=== PATIENT | female | born 1935 | race Caucasian/White ===

== ENCOUNTER 2016-10-08 16:06 | Inpatient (IN) | payer MEDICARE, MEDICAID ==
[~2016-10-08] VITALS: Ht 162.6 cm; Wt 95.3 kg
[2016-10-08 16:00] VITALS: BP 140/73
[~2016-10-08 16:06] MED LIST: ASPI1CPM PO; CLON0.1T PO; EZET1TAB7 PO; LORA0.5T PO; METF500T4 PO; VALS1TAB4 PO
[2016-10-08 16:20] VITALS: BP 140/73
--- NOTE | 2016-10-08 16:20 | NUR ---
MS RN NOTES PATIENT DIRECT ADMIT FROM DR. HASSAN'S OFFICE. DX HTN OOC. AAO X 4 , BARBADIAN SPEAKING, ON RA, NAD, NO SOB, RESPIRATION UNLABORED. NO COMPLAIN OF PAIN. FOR MIDLINE INSERTION. CARDIAC DIET. AMBULATORY. NO SKIN ISSUES. FALL PRECAUTION. UNIT ORIENTATION DONE AND USE OF CALL LIGHT. WILL CONT TO MONITOR.
[2016-10-08] MEDS ORDERED: IV NS 0.9% 1,000 ML BAG IV PRN (16:30)
[2016-10-08] MEDS ORDERED: ASPI1CPM PO (16:32)
[2016-10-08] MEDS ORDERED: ESCI10TA PO (16:32)
[2016-10-08] MEDS ORDERED: ACET-868 PO (16:32)
[2016-10-08] MEDS ORDERED: METF500T4 PO (16:32)
[2016-10-08] MEDS ORDERED: HYDR-548 PO (16:32)
[2016-10-08] MEDS ORDERED: PANT40TA2 PO (16:32)
[2016-10-08] MEDS ORDERED: LORA1TAB82 PO (16:32)
[2016-10-08] MEDS ORDERED: VALS160T2 PO (16:32)
[2016-10-08 17:09] LABS: BASOPHILS % (AUTO) 0.4 % (0.0-2.0); EOSINOPHILS # (AUTO) 0.1 /CMM (0.0-0.7); EOSINOPHILS % (AUTO) 2.3 % (0.0-6.0); HEMATOCRIT 32 % (33-45); HEMOGLOBIN 10.6 g/dL (11.5-14.8); LYMPHOCYTES # (AUTO) 1.3 /CMM (0.8-4.8); LYMPHOCYTES % (AUTO) 29.7 % (20.0-44.0); MEAN CORPUSCULAR HEMOGLOBIN 25 PG (26.0-33.0); MEAN CORPUSCULAR HGB CONC 33 g/dl (31.0-36.0); MEAN CORPUSCULAR VOLUME 77 fL (82-100); MONOCYTES # (AUTO) 0.3 /CMM (0.1-1.30); MONOCYTES % (AUTO) 6.5 % (2.0-12.0); NEUTROPHILS # (AUTO) 2.6 /CMM (1.8-8.9); NEUTROPHILS % (AUTO) 61.1 % (43.0-81.0); PLATELET COUNT (AUTO) 204 /CMM (150-450); RDW COEFFICIENT OF VARIATION 16.8 (11.5-15.0); RED BLOOD CELL COUNT(AUTO) 4.19 MIL/uL (4.0-5.2); WHITE BLOOD COUNT (AUTO) 4.3 K/uL (4.3-11.0)
[2016-10-08] MEDS ORDERED: ONDANSETRON HCL/PF 4 MG/2 ML VIAL IV PRN (17:30)
[2016-10-08] MEDS ORDERED: LORAZEPAM 1 MG TABLET PO PRN (17:30)
[2016-10-08] MEDS ORDERED: DEXTROSE 50%-WATER 50 ML DISP.SYRIN IV PRN (17:30)
[2016-10-08] MEDS ORDERED: HYDROCODONE/APAP 10/325MG 1 EA TABLET PO PRN (17:30)
[2016-10-08 17:32] LABS: TROPONIN I < 0.017 ng/mL (0.00-0.056)
[2016-10-08] MEDS: BLOOD SUGAR DIAGNOSTIC 1 EACH STRIP IN SCH ×2 (17:35→21:04)
[2016-10-08 17:37] LABS: ALANINE AMINOTRANSFERASE 32 U/L (12-78); ALKALINE PHOSPHATASE 57 U/L (46-116); ASPARTATE AMINOTRANSFERASE 24 U/L (15-37); B-TYPE NATRIURETIC PEPTIDE 386 PG/ML (0-125); BILIRUBIN,TOTAL 0.3 mg/dL (0.2-1.0); CALCIUM, SERUM 8.8 mg/dL (8.5-10.1); CARBON DIOXIDE 29 mmol/L (21-32); CHLORIDE 102 mmol/L (98-107); GLUCOSE 131 mg/dL (74-106); POTASSIUM 4.5 mmol/L (3.5-5.1); SODIUM SERUM 139 mmol/L (136-145); THYROID STIMULATING HORMONE 2.201 uIU/mL (0.358-3.74); TOTAL PROTEIN, SERUM 7.5 g/dL (6.4-8.2); UREA NITROGEN, BLOOD 15 mg/dL (7-18)
--- NOTE | 2016-10-08 17:48 | NUR ---
MS RN NOTES ACCUCHECK DONE , BS 136 MG/DL. REFUSE INSULIN FOR NOW. NOT HAVE EATEN ANYTHING.
[2016-10-08 18:00] VITALS: BP 140/73
--- NOTE | 2016-10-08 19:30 | NUR ---
MS RN NOTE RECEIVED PATIENT AWAKE ALERT AND ORIENTED IN BED. DENIES ANY PAIN OR DISCOMFORT AT THIS TIME. NO RESPIRATORY DISTRESS OR SOB NOTED. MIDLINE TO FERMIN INTACT. WILL ADMINISTER FLUIDS ORDERED. BED LOCKED AND IN LOWEST POSITION. SIDE RAILS UP, CALL LIGHT WITHIN REACH. WILL CONTINUE TO MONITOR.
--- NOTE | 2016-10-08 19:32 | NUR ---
MS RN NOTES ALL NEEDS MET. RESTING COMFORTABLY. ONGOING MIDLINE INSERTION. FOR MRSA SURVEILLANCE COLLECTION. ENDORSED TO NEXT SHIFT FOR SWEETIE.
[2016-10-08 20:00] VITALS: BP 147/58
[2016-10-08] MEDS ORDERED: IV SET PRIMARY PUMP SET 1 EA INFUS.SET MC ONE (20:59)
[2016-10-08] MEDS: VALSARTAN 80 MG TABLET PO SCH (21:03)
[2016-10-08] MEDS: IV NS 0.9% 1,000 ML IV PRN (21:04)
[2016-10-08 22:00] VITALS: BP 147/58
[2016-10-08 22:00] LABS: APPEARANCE,URINE CLEAR (CLEAR); BILIRUBIN,URINE NEGATIVE (NEGATIVE); BLOOD, URINE NEGATIVE Ery/uL (NEGATIVE); COLOR,URINE YELLOW (YELLOW); KETONES,URINE NEGATIVE (NEGATIVE); LEUKOCYTE ESTERASE ,URINE TRACE (NEGATIVE); NITRITE, URINE NEGATIVE (NEGATIVE); PH,URINE 6.5 (5.0-8.0); PROTEIN,URINE NEGATIVE (NEGATIVE); UGLUCOSE NEGATIVE (NEGATIVE); UROBILINOGEN,URINE 0.2 EU/dL (0.2)
[2016-10-08 22:13] LABS: RBC,URINE NONE SEEN /HPF (0-2); WBC,URINE 0-2 /HPF (0-3)
[2016-10-08 22:14] LABS: BACTERIA,URINE None seen /HPF (None Seen); SQUAMOUS EPITHELIAL CELL,UR Rare /HPF (None Seen)
[2016-10-08] MEDS: CLONIDINE HCL 0.1 MG TABLET PO PRN (23:20)
--- NOTE | 2016-10-09 01:00 | NUR ---
MS RN NOTE PER SON'S REQUEST BLOOD PRESSURE WAS TAKEN. BP IS 158/89 AT THIS TIME. PATIENT COMFORTABLE.
--- NOTE | 2016-10-09 07:25 | NUR ---
RN MS NOTES PATIENT IN BED, ALERT AND ORIENTED, NO DISTRESS NOTED, DENIES PAIN AT THIS TIME, NEEDS ATTENDED, CALL LIGHT WITHIN REACH, SAFETY MEASURES IN PLACED, WILL CONTINUE TO MONITOR.
[2016-10-09] MEDS: BLOOD SUGAR DIAGNOSTIC 1 EACH STRIP IN SCH ×4 (07:33→21:14)
[2016-10-09 07:50] LABS: BASOPHILS % (AUTO) 0.4 % (0.0-2.0); EOSINOPHILS # (AUTO) 0.1 /CMM (0.0-0.7); EOSINOPHILS % (AUTO) 2.4 % (0.0-6.0); HEMATOCRIT 32 % (33-45); HEMOGLOBIN 10.7 g/dL (11.5-14.8); LYMPHOCYTES # (AUTO) 1.2 /CMM (0.8-4.8); LYMPHOCYTES % (AUTO) 32.5 % (20.0-44.0); MEAN CORPUSCULAR HEMOGLOBIN 26 PG (26.0-33.0); MEAN CORPUSCULAR HGB CONC 33 g/dl (31.0-36.0); MEAN CORPUSCULAR VOLUME 77 fL (82-100); MONOCYTES # (AUTO) 0.3 /CMM (0.1-1.30); MONOCYTES % (AUTO) 7.1 % (2.0-12.0); NEUTROPHILS # (AUTO) 2.1 /CMM (1.8-8.9); NEUTROPHILS % (AUTO) 57.6 % (43.0-81.0); PLATELET COUNT (AUTO) 173 /CMM (150-450); RDW COEFFICIENT OF VARIATION 16.5 (11.5-15.0); RED BLOOD CELL COUNT(AUTO) 4.18 MIL/uL (4.0-5.2); WHITE BLOOD COUNT (AUTO) 3.7 K/uL (4.3-11.0)
[2016-10-09 08:00] VITALS: BP 160/73
[2016-10-09 08:25] LABS: CALCIUM, SERUM 8.9 mg/dL (8.5-10.1); CARBON DIOXIDE 29 mmol/L (21-32); CHLORIDE 104 mmol/L (98-107); CREATININE 0.9 mg/dL (0.6-1.3); GLUCOSE 166 mg/dL (74-106); POTASSIUM 4.2 mmol/L (3.5-5.1); SODIUM SERUM 143 mmol/L (136-145); UREA NITROGEN, BLOOD 14 mg/dL (7-18)
[2016-10-09 08:29] LABS: CHOLESTEROL 222 mg/dL (<200); HDL CHOLESTEROL 22 mg/dL (40-60); LDL 135 mg/dL (0-99); TRIGLYCERIDES 327 mg/dL (30-150)
[2016-10-09] MEDS: PANTOPRAZOLE 40 MG TABLET.DR PO SCH (09:02)
[2016-10-09] MEDS: METFORMIN 500 MG TABLET PO SCH ×2 (09:03→17:00)
[2016-10-09] MEDS: AGGRENOX(ASA/DIPYRIDAMOLE) 1 CAP CPMP.12HR PO SCH ×2 (09:03→18:42)
[2016-10-09] MEDS: VALSARTAN 80 MG TABLET PO SCH ×2 (09:03→21:09)
[2016-10-09] MEDS: ESCITALOPRAM OXALATE (10 MG) 10 MG TABLET PO SCH ×2 (09:03→17:24)
[2016-10-09] MEDS: IV NS 0.9% 1,000 ML IV PRN (09:12)
[2016-10-09 10:21] LABS: CANCER AG, 125 7.3 U/mL (0.0-38.1); CARCINOEMBRYONIC AG (CEA) 1.6 ng/mL (0.0-4.7)
[2016-10-09 10:50] LABS: IRON, SERUM 52 ug/dl (50-175); TOTAL IRON BINDING CAPACITY 405 ug/dl (250-450)
--- NOTE | 2016-10-09 11:09 | NUR ---
SPOKE WITH RN. PATIENT ATE AT 0800. AWAITING CONSENT FOR COMPUTED TOMOGRAPHY ABDOMEN PELVIS WITH CONTRAST. RN WILL CALL BACK TO CONFIRM CONSENT.
[2016-10-09] MEDS ORDERED: CT SWABBABLE VALVE TRANS SET 1 EA INFUS.SET MC ONE (11:55)
[2016-10-09] MEDS ORDERED: IV NS 0.9% 250 ML IV ONE (11:55)
[2016-10-09] MEDS ORDERED: IOHEXOL-300 100 ML VIAL IV ONE (11:55)
[2016-10-09] MEDS: INSULIN REGULAR, HUMAN 100 UNIT/ML 3 ML VIAL SQ PRN ×2 (12:39→17:28)
[2016-10-09] MEDS: CYANOCOBALAMIN 1,000 MCG/ML VIAL IM SCH (12:39)
[2016-10-09] MEDS: AMLODIPINE BESYLATE 5 MG TABLET PO SCH (12:40)
[2016-10-09] MEDS: CLONIDINE HCL 0.1 MG TABLET PO PRN ×2 (12:41→23:28)
[2016-10-09] MEDS: hydrALAZINE HCL 50 MG TABLET PO SCH ×2 (14:50→17:25)
[2016-10-09 16:00] VITALS: BP 125/62
[2016-10-09] MEDS ORDERED: SECONDARY IV SET 1 EA INFUS.SET MC ONE (17:30)
[2016-10-09] MEDS: SOD FERRIC GLUC 125 MG in IV NS 0.9% 100 ML IV SCH (17:34)
--- NOTE | 2016-10-09 19:30 | NUR ---
RN NOTES RECEIVED PATIENT IN BED AWAKE, AO X 3, ABLE TO MAKE NEEDS KNOWN. NO ACUTE DISTRESS NOTED. DENIES ANY PAIN AT THIS TIME. IV SITE PATENT, INTACT; FLUSHED. NO SYMPTOMS OF HYPER/HYPOGLYCEMIA. ON LOW BED WITH BILATERAL UPPER SIDE RAILS UP. CALL LIGHT WITHIN EASY REACH. WILL CONTINUE TO MONITOR.
--- NOTE | 2016-10-09 19:47 | NUR ---
RN MS NOTES PATIENT NON-COMPLIANT, REFUSED SOME MEDS AND INSULIN, DR. HASSAN AWARE, PER SON, WHEN PATIENT TAKES NORVASC HER FEET SWELLS, NO EDEMA NOTED AT THIS TIME, WILL INFORM DR. JIN IN AM, ENDORSED TO ZINC MINER BLASTING FOR SWEETIE.
[2016-10-09 20:00] VITALS: BP 151/67
[2016-10-09] MEDS: ACETAMINOPHEN 325 MG TABLET PO PRN (23:30)
[2016-10-10] VITALS (10 sets, daily range): BP systolic 88–162; BP diastolic 37–71
--- NOTE | 2016-10-10 03:30 | NUR ---
ms rn notes: received patient from RN, SEVEN. no signs or symptoms of distress noted at this time. pt is sleeping at this time. call light within pt's reach. bed kept in locked, lowest position, and side rails x 2 up. will continue to monitor pt.
--- NOTE | 2016-10-10 03:30 | NUR ---
RN NOTES REPORT GIVEN TO LIBBY LOPEZ FOR CONTINUITY OF CARE. PATIENT ASLEEP, EASILY AROUSABLE. RESPIRATIONS EVEN.
[2016-10-10] MEDS: BLOOD SUGAR DIAGNOSTIC 1 EACH STRIP IN SCH ×4 (06:26→21:45)
--- NOTE | 2016-10-10 07:30 | NUR ---
MS RN CLOSING NOTES: PT'S BLOOD SUGAR WAS CHECKED EARLIER AND WAS 208MG/DL. TOLD PATIENT THAT SHE IS TO RECEIVE INSULIN BUT SHE REFUSED TO HAVE INSULIN. NO SIGNS OR SYMPTOMS OF DISTRESS NOTED AT THIS TIME. CALL LIGHT WITHIN PT'S REACH. BED KEPT IN LOCKED, LOWEST POSITION, AND SIDE RAILS X 2 UP. ENDORSED TO AM NURSE FOR SWEETIE.
--- NOTE | 2016-10-10 07:41 | NUR ---
MS RN OPENING NOTE PATIENT IS ALERT AND ORIENTED x3. NO PAIN AT THIS TIME. NO SOB OR DISTRESS NOTED. CALL LIGHT WITHIN REACH. SAFETY MEASURES IMPLEMENTED. IV INTACT AND PATENT NO REDNESS OR SWELLING NOTED. ABLE TO COMMUNICATE NEEDS. WILL CONTINUE TO MONITOR
[2016-10-10] MEDS: METFORMIN 500 MG TABLET PO SCH ×2 (09:00→17:00)
[2016-10-10] MEDS: CYANOCOBALAMIN 1,000 MCG/ML VIAL IM SCH (09:00)
[2016-10-10] MEDS: PANTOPRAZOLE 40 MG TABLET.DR PO SCH (09:18)
[2016-10-10] MEDS: ESCITALOPRAM OXALATE (10 MG) 10 MG TABLET PO SCH ×2 (09:18→17:13)
[2016-10-10] MEDS: AMLODIPINE BESYLATE 5 MG TABLET PO SCH (09:19)
[2016-10-10] MEDS: VALSARTAN 80 MG TABLET PO SCH ×2 (09:20→21:00)
[2016-10-10] MEDS: AGGRENOX(ASA/DIPYRIDAMOLE) 1 CAP CPMP.12HR PO SCH ×2 (09:21→17:13)
[2016-10-10] MEDS: ISOSORBIDE DINITRATE (20MG) 20 MG TABLET PO SCH ×2 (09:30→17:13)
[2016-10-10] MEDS: hydrALAZINE HCL 50 MG TABLET PO SCH ×2 (13:27→17:00)
[2016-10-10] MEDS ORDERED: PEG 3350/NA SULF,BICARB,CL/KCL 4,000 ML BOTTLE PO ONE (14:00)
[2016-10-10] MEDS: SOD FERRIC GLUC 125 MG in IV NS 0.9% 100 ML IV SCH (14:00)
[2016-10-10] MEDS: ACETAMINOPHEN 325 MG TABLET PO PRN (18:05)
--- NOTE | 2016-10-10 18:32 | NUR ---
MS RN CLOSING NOTE PATIENT IS ALERT AND ORIENTED x4. NO PAIN AT THIS TIME. NO SOB OR DISTRESS NOTED. IV INTACT AND PATENT NO REDNESS OR SWELLING NOTED. CLEAR LIQUID DIET NPO AT MIDNIGHT FOR COLONOSCOPY/EGD PROCEDURE WITH DR. BILLINGSLEY IN THE MORNING. PATIENT REFUSED INSULIN, BLOOD SUAGR 197. CALL LIGHT WITHIN REACH AT ALL TIMES. SAFETY MEASURES IMPLEMENTED. WILL ENDORSE TO PUMP HOUSE ENGINEER
--- NOTE | 2016-10-10 19:30 | NUR ---
MS/RN INITIAL NOTE PATIENT IS ALERT AND ORIENTED x3. NO PAIN AT THIS TIME. NO SOB, COMPLAINTS OF DIZZINESS UPON STANDING, OBTAINED BP 3 TIMES TO EVALUATE FOR ORTHOSTATIC HYPERTENSION. EDUCATION WAS GIVEN TO PT AND SON/FAMILY. CALL LIGHT WITHIN REACH. SAFETY MEASURES IMPLEMENTED. IV INTACT AND PATENT NO REDNESS OR SWELLING NOTED. ABLE TO COMMUNICATE NEEDS. WILL CONTINUE TO MONITOR
--- NOTE | 2016-10-10 20:00 | NUR ---
MS/RN BP NOTES EDUCATED PT AND FAMILY ABOUT THE NEED TO CHANGE POSITIONS SLOWLY TO PREVENT DIZZINESS WITH ORTHOSTATIC HYPERTENSION. PT AND FAMILY VERBALIZE UNDERSTANDING. WILL CONTINUE TO MONITOR BP AND ENFORCE FALL PREVENTION STRATEGIES.
--- NOTE | 2016-10-10 20:35 | NUR ---
MS/RN BP NOTES DESPITE TEACHING AND VERBALIZTION OF UNDERSTAND THE IMPORTANCE OF CHANGING POSITIONS LOWLY, PT IS NONCOMPLIANT, MOVES AROUND FREELY AND COMPLAINTS OF DIZZINESS WITH NAUSEA. WILL CONTINUE TO MONITOR PT. CALL LIGHT WITHIN REACH
--- NOTE | 2016-10-10 21:00 | NUR ---
DIOVAN REFUSED: PT REFUSED DIOVAN 160 MG SCHEDULE FOR 2100, PT SON AT BED SIDE, PT HD EPISODE OF ORTHOSTATIC HYPOTENSION, AND IS REFUSING MEDICATION FOR BP, WILL CONTINUE TO MONITOR BP, EDUCATION PROVIDED TO PT ND FAMILY
--- NOTE | 2016-10-10 21:00 | NUR ---
MS JOHN BHANDARI REENFORCED THE NEED TO FINISH THE GOLYTELY IN ORDER TO BE PREPPED FOR PROCEDURE TOMORROW AM. POURED GOLYTELY INTO DRINKING CONTAINER AND CUP FOR PT TO ENCOURAGED INTAKE. WILL CONTINUE TO MONITOR
--- NOTE | 2016-10-10 21:24 | NUR ---
PROCEDURE CONSENT: RECEIVED CALL FROM DR JIN, INFORMED MD THAT PATIENT IS AGREEING TO THE [place] STRESS TEST, HOWEVER THE PT SON VIJAY SAID HE'S OKAY WITH THE TEST BUT ONLY RUN AND NOT WITH MEDICATION, ALSO EXTERNAL GRINDER TENDER MADE AWARE THAT PATIENT'S SON WOULD LIKE TO TALK TO HIM IN AM, PER "MAKE SURE TO GET THE FINAL DECISION TO WHETHER THE PT WILL GO FOR STRESS TEST OR NOT, HE ALSO MENTIONED THAT IF THE FAMILY DO NOT WANT THE PROCEDURE INFORMED FELICIA FROM NUCLEAR MEDICINE SO HE CAN CANCEL IT. PER THAT HE WILL TALK TO THE FAMILY TOMORROW AM AT 0700AM." RELAYED TO PT'S SON VIJAY, HE STATED HE WILL GIVE CONSENT FOR THE STRESS TEST BUT STATED ONLY FOR RUN AND NOT MEDICATION. ALSO INFORMED THAT EXTERNAL GRINDER TENDER WILL TALK TO HIM IN AM. VIJAY, PT'S SON SIGNED THE CONSENT FOR STRESS TEST/LEXISCAN TEST.
--- NOTE | 2016-10-10 21:30 | NUR ---
orthostatic bp: orthostatic bp taken, please see vital short form for all the result.
[2016-10-10] MEDS: INSULIN REGULAR, HUMAN 100 UNIT/ML 3 ML VIAL SQ PRN (21:45)
--- NOTE | 2016-10-10 22:00 | NUR ---
MS/RN ELISABET NOTES AGAIN, REENFORCED THE NEED TO FINISH THE GOLYTELY IN ORDER TO BE PREPPED FOR PROCEDURE TOMORROW AM. POURED GOLYTELY INTO DRINKING CONTAINER AND CUP FOR PT TO ENCOURAGED INTAKE. PT HAS BEEN NONCOMPLIANT WITH TAKING GOLYTELY. WILL CONTINUE TO MONITOR BM'S
--- NOTE | 2016-10-10 22:17 | NUR ---
MS RN PRN NOTES COMPLAINT OF NAUSEA, ZOFRAN ADMINISTERED
--- NOTE | 2016-10-10 23:59 | NUR ---
MS/RN MD FOLLOW-UP CONTACTED DR. WARD, MADE AWARE THAT BM STILL NOT CLEAR DESPITE TAKING GOLYTELY. PER MD, KEEPING PUSHING GOLYTELY, GIVE 1 TIME DULCOLAX SUPP IN AM AND TAP WATER ENEMA UNTIL CLEAR.
[2016-10-11] VITALS (7 sets, daily range): BP systolic 110–161; BP diastolic 53–70
[2016-10-11] MEDS ORDERED: BISACODYL SUPP (10 MG) 10 MG/SUPP.RECT SUPP.RECT RC ONE ×2 (05:10→05:30)
--- NOTE | 2016-10-11 05:26 | NUR ---
MS/RN PER MD ORDER DULCOLAX WAS ADMINISTERED TO PT PER DR BILLINGSLEY ORDERS FOR COLONOSCOPY PREP. BM STILL NOT CLEAR. WILL CONTINUE TO MONITOR BM
[2016-10-11] MEDS: BLOOD SUGAR DIAGNOSTIC 1 EACH STRIP IN SCH ×4 (06:35→22:15)
--- NOTE | 2016-10-11 06:53 | NUR ---
MS/RN CLOSING NOTES PATIENT IS LAYING DOWN IN BED. GOLYTELY WAS COMPLETED AND PT WAS NPO STARTING MIDNIGHT. PER MD ORDER DOLCOLAX AND ENEMA WERE GIVEN. CONSENT AND PREOP CHECKLIST HAVE BEEN SIGNED, COMPLETED AND PUT IN THE CHART.IV ACCESS IS PATENT AND INTACT. WILL ENDORSE CARE TO AM SHIFT
--- NOTE | 2016-10-11 07:05 | NUR ---
ENEMA: ENEMA WAS PERFORMED PER DR ANALILIA PULIDO
--- NOTE | 2016-10-11 07:10 | NUR ---
MS RN NOTE: RECEIVED PATIENT WHILE RESTING IN BED, A/OX 4. PATIENT BREATHING EVEN AND UNLABORED ON 2L O2 VIA NC. NO SOB, NO DISTRESS/DISCOMFORT. PATIENT REMAINS NPO, ALL NEEDS ATTENDED TO. SAFETY MEASURES IN PLACE, WILL CONTINUE TO MONITOR.
[2016-10-11] MEDS: PANTOPRAZOLE 40 MG TABLET.DR PO SCH (07:30)
[2016-10-11 07:32] LABS: BASOPHILS % (AUTO) 0.4 % (0.0-2.0); EOSINOPHILS # (AUTO) 0.1 /CMM (0.0-0.7); EOSINOPHILS % (AUTO) 2.8 % (0.0-6.0); HEMATOCRIT 29 % (33-45); HEMOGLOBIN 9.7 g/dL (11.5-14.8); LYMPHOCYTES # (AUTO) 1.1 /CMM (0.8-4.8); LYMPHOCYTES % (AUTO) 28.8 % (20.0-44.0); MEAN CORPUSCULAR HEMOGLOBIN 26 PG (26.0-33.0); MEAN CORPUSCULAR HGB CONC 34 g/dl (31.0-36.0); MEAN CORPUSCULAR VOLUME 77 fL (82-100); MONOCYTES # (AUTO) 0.3 /CMM (0.1-1.30); MONOCYTES % (AUTO) 7.8 % (2.0-12.0); NEUTROPHILS # (AUTO) 2.4 /CMM (1.8-8.9); NEUTROPHILS % (AUTO) 60.2 % (43.0-81.0); PLATELET COUNT (AUTO) 149 /CMM (150-450); RDW COEFFICIENT OF VARIATION 16.9 (11.5-15.0); RED BLOOD CELL COUNT(AUTO) 3.78 MIL/uL (4.0-5.2); WHITE BLOOD COUNT (AUTO) 3.9 K/uL (4.3-11.0)
[2016-10-11 07:57] LABS: CALCIUM, SERUM 8.5 mg/dL (8.5-10.1); CARBON DIOXIDE 28 mmol/L (21-32); CHLORIDE 108 mmol/L (98-107); CREATININE 1.1 mg/dL (0.6-1.3); GLUCOSE 147 mg/dL (74-106); MAGNESIUM 1.8 mg/dL (1.8-2.4); POTASSIUM 4.3 mmol/L (3.5-5.1); SODIUM SERUM 143 mmol/L (136-145); UREA NITROGEN, BLOOD 17 mg/dL (7-18)
--- NOTE | 2016-10-11 07:57 | NUR ---
MS RN NOTE: DR. BILLINGSLEY NOTIFIED THAT PATIENT IS STATING HER BOWELS ARE LIQUID, BUT SLIGHTLY YELLOW AND SMALL PARTICLES. MD STATED TO ADMINISTER TAP WATER ENEMA'S UNTIL CLEAR. ORDER PLACED, WILL IMPLEMENT.
[2016-10-11 08:17] LABS: INR 0.98 (0.87-1.13); PROTHROMBIN TIME 10.5 SECS (9.5-12.7)
--- NOTE | 2016-10-11 08:24 | NUR ---
MS RN NOTE: PATIENT/SON AGREED TO STRESS TEST WITH TREADMILL. PATIENT IN STABLE CONDITION, TAKEN DOWN FOR STRESS TEST VIA WHEELCHAIR.
[2016-10-11] MEDS: VALSARTAN 80 MG TABLET PO SCH ×2 (09:00→20:20)
[2016-10-11] MEDS: ISOSORBIDE DINITRATE (20MG) 20 MG TABLET PO SCH ×2 (09:00→16:25)
[2016-10-11] MEDS: hydrALAZINE HCL 50 MG TABLET PO SCH ×3 (09:00→16:24)
[2016-10-11] MEDS: METFORMIN 500 MG TABLET PO SCH ×2 (09:00→16:28)
[2016-10-11] MEDS: AMLODIPINE BESYLATE 5 MG TABLET PO SCH (09:00)
[2016-10-11] MEDS: AGGRENOX(ASA/DIPYRIDAMOLE) 1 CAP CPMP.12HR PO SCH ×2 (09:00→16:28)
[2016-10-11] MEDS: ESCITALOPRAM OXALATE (10 MG) 10 MG TABLET PO SCH ×2 (09:00→16:28)
--- NOTE | 2016-10-11 09:25 | NUR ---
MS RN NOTE: PATIENT RETURNED FROM STRESS TEST, ABLE TO COMPLETE TREADMILL PORTION. PATIENT REMAINS STABLE. WILL CONTINUE TO MONITOR.
--- NOTE | 2016-10-11 10:15 | NUR ---
MS RN NOTE: TAP WATER ENEMA ADMINISTERED X 2. PATIENT'S BOWELS ARE NOW CLEAR. PATIENT REMAINS STABLE. WILL CONTINUE TO MONITOR.
--- NOTE | 2016-10-11 10:30 | NUR ---
MS RN NOTE: PATIENT TAKEN DOWNSTAIRS VIA WHEELCHAIR FOR SECOND PART OF STRESS TEST. PATIENT REMAINS STABLE, WILL CONTINUE TO MONITOR UPON RETURN.
--- NOTE | 2016-10-11 11:30 | NUR ---
MS RN NOTE: PATIENT RETURNED BACK TO FLOOR. REMAINS STABLE, A/OX 4. BREATHING EVEN AND UNLABORED. WILL CONTINUE TO MONITOR.
[2016-10-11] MEDS: CYANOCOBALAMIN 1,000 MCG/ML VIAL IM SCH (11:42)
--- NOTE | 2016-10-11 12:05 | NUR ---
MS RN NOTE: PATIENT TRANSPORTED TO OR FOR COLONOSCOPY/EGD VIA BED. PATIENT REMAINS STABLE, WILL CONTINUE TO MONITOR PATIENT UPON RETURN.
[2016-10-11] MEDS ORDERED: ANESTHESIA TRAY IN PYXIS 1 EA TRAY MC ONE (13:30)
--- NOTE | 2016-10-11 14:00 | NUR ---
MS RN NOTE: PATIENT RETURNED FROM EGD/COLONOSCOPY. REMAINS IN STABLE CONDITION. NO COMPLICATIONS NOTED, VITALS WNL, WILL CONTINUE TO MONITOR.
[2016-10-11] MEDS ORDERED: IV SET PRIMARY PUMP SET 1 EA INFUS.SET MC ONE (14:40)
[2016-10-11] MEDS: SOD FERRIC GLUC 125 MG in IV NS 0.9% 100 ML IV SCH (14:49)
--- NOTE | 2016-10-11 16:45 | NUR ---
MS RN NOTE: BLOOD SUGAR CHECKED, READING 159. PATIENT REFUSED INSULIN, STATES ONLY TAKES METFORMIN. PATIENT STABLE, WILL CONTINUE TO MONITOR.
--- NOTE | 2016-10-11 18:09 | NUR ---
MS RN NOTE: PATIENT REQUESTING FOR SOLID FOODS. STATING THEY REFUSE ANY FURTHER TESTING. DR. BILLINGSLEY NOTIFIED AND HAS ORDERED A DIABETIC DIET. ORDER PLACED, WILL PROVIDE NEW TRAY.
--- NOTE | 2016-10-11 18:32 | NUR ---
MS RN NOTE: PATIENT RESTING IN BED, A/OX 4. BREATHING EVEN AND UNLABORED ON ROOM AIR. NO SOB, NO DISTRESS AT THIS TIME. PATIENTS NEEDS ATTENDED TO, SAFETY MEASURES IN PLACE, WILL ENDORSE TO HUNTER GUIDE FOR SWEETIE.
--- NOTE | 2016-10-11 19:45 | NUR ---
MS/RN INITIAL NOTE PT IS POST EGD AND NM STRESS TEST PER DR JIN. PATIENT IS ALERT AND ORIENTED x3. PT STATES MILD PAIN 3/10. NO SOB. CALL LIGHT WITHIN REACH. SAFETY MEASURES IMPLEMENTED. IV INTACT AND PATENT NO REDNESS OR SWELLING NOTED. ABLE TO COMMUNICATE NEEDS. WILL CONTINUE TO MONITOR
[2016-10-11] MEDS: ACETAMINOPHEN 325 MG TABLET PO PRN (20:01)
--- NOTE | 2016-10-11 20:01 | NUR ---
MS RN PRN MEDS PT COMPLAINS OF MILD PAIN RATED 3/10 USING THE ADULT SCALE, TYLENOL WAS ADMINISTERED. WILL CONTINUE TO MONITOR
--- NOTE | 2016-10-11 22:06 | NUR ---
MS/RN DIET EDUCATED PT AND FAMILY ON DIABETIC DIET. DESPITE TEACHING PT EATING PIZZA AND SWEETS BROUGHT BY SON. PT IS NONCOMPLIANT.
[2016-10-11] MEDS: INSULIN REGULAR, HUMAN 100 UNIT/ML 3 ML VIAL SQ PRN (22:15)
[2016-10-12] MEDS: BLOOD SUGAR DIAGNOSTIC 1 EACH STRIP IN SCH ×2 (06:33→11:28)
--- NOTE | 2016-10-12 06:34 | NUR ---
MS/RN CLOSING NOTES PATIENT IS LAYING DOWN IN BED. D/C PLANNING AND EXIT CARE STARTED. IV ACCESS IS PATENT AND INTACT. WILL ENDORSE CARE TO AM SHIFT
[2016-10-12] MEDS: INSULIN REGULAR, HUMAN 100 UNIT/ML 3 ML VIAL SQ PRN (06:39)
[2016-10-12 07:13] LABS: CALCIUM, SERUM 8.4 mg/dL (8.5-10.1); CARBON DIOXIDE 26 mmol/L (21-32); CHLORIDE 107 mmol/L (98-107); CREATININE 0.8 mg/dL (0.6-1.3); GLUCOSE 130 mg/dL (74-106); POTASSIUM 4.7 mmol/L (3.5-5.1); SODIUM SERUM 142 mmol/L (136-145); UREA NITROGEN, BLOOD 13 mg/dL (7-18)
--- NOTE | 2016-10-12 07:30 | NUR ---
MS RN NOTE: RECEIVED PATIENT WHILE RESTING IN BED, A/OX 4. PATIENT BREATHING EVEN AND UNLABORED ON ROOM AIR. NO SOB, NO DISTRESS. PATIENT'S BLOOD PRESSURE VERY HIGH THIS MORNING, 200/81. PRN DOSE OF CATAPRES ADMINISTERED. WILL REASSESS AND PROVIDE MORNING BLOOD PRESSURE MEDICATIONS AT SCHEDULED TIME OF DOSE. ALL OTHER NEEDS ATTENDED TO, SAFETY MEASURES IN PLACE, WILL CONTINUE TO MONITOR.
[2016-10-12] MEDS: CLONIDINE HCL 0.1 MG TABLET PO PRN (07:33)
[2016-10-12] MEDS: PANTOPRAZOLE 40 MG TABLET.DR PO SCH (07:33)
[2016-10-12 08:00] VITALS: BP 200/81
[2016-10-12] MEDS: ESCITALOPRAM OXALATE (10 MG) 10 MG TABLET PO SCH (08:29)
[2016-10-12] MEDS: METFORMIN 500 MG TABLET PO SCH (08:29)
[2016-10-12] MEDS: CYANOCOBALAMIN 1,000 MCG/ML VIAL IM SCH (08:29)
[2016-10-12] MEDS: AGGRENOX(ASA/DIPYRIDAMOLE) 1 CAP CPMP.12HR PO SCH (08:37)
--- NOTE | 2016-10-12 08:50 | NUR ---
MS RN NOTE: PATIENTS BLOOD PRESSURE RE-CHECKED AFTER CLONIDINE. READING, 152/74. PATIENT STATING THAT SHE DOES NOT WANT ANY BP MEDS YET. PT REQUESTING TO RECHECK BP IN 1 HOUR AND REASSESS.
[2016-10-12] MEDS: VALSARTAN 80 MG TABLET PO SCH ×2 (09:00→12:09)
[2016-10-12] MEDS: AMLODIPINE BESYLATE 5 MG TABLET PO SCH (09:00)
[2016-10-12] MEDS: hydrALAZINE HCL 50 MG TABLET PO SCH ×2 (09:00→12:09)
[2016-10-12] MEDS: ISOSORBIDE DINITRATE (20MG) 20 MG TABLET PO SCH (09:00)
--- NOTE | 2016-10-12 09:50 | NUR ---
MS RN NOTE: PATIENTS BLOOD PRESSURE CHECKED ONCE AGAIN, READING 133/61, PULSE OF 63. PATIENT REFUSED ANY OTHER BLOOD PRESSURE MEDICATIONS. STATING HER BLOOD PRESSURE WILL CONTINUE TO DROP SINCE TAKING CLONIDINE. MORNING BP MEDS NOT ADMINISTERED, WILL CONTINUE TO MONITOR.
[2016-10-12 09:59] LABS: BASOPHILS % (AUTO) 0.3 % (0.0-2.0); EOSINOPHILS # (AUTO) 0.1 /CMM (0.0-0.7); EOSINOPHILS % (AUTO) 2.1 % (0.0-6.0); HEMATOCRIT 32 % (33-45); HEMOGLOBIN 10.6 g/dL (11.5-14.8); LYMPHOCYTES # (AUTO) 0.9 /CMM (0.8-4.8); LYMPHOCYTES % (AUTO) 20.8 % (20.0-44.0); MEAN CORPUSCULAR HEMOGLOBIN 26 PG (26.0-33.0); MEAN CORPUSCULAR HGB CONC 33 g/dl (31.0-36.0); MEAN CORPUSCULAR VOLUME 78 fL (82-100); MONOCYTES # (AUTO) 0.3 /CMM (0.1-1.30); MONOCYTES % (AUTO) 6.3 % (2.0-12.0); NEUTROPHILS % (AUTO) 70.5 % (43.0-81.0); PLATELET COUNT (AUTO) 157 /CMM (150-450); RDW COEFFICIENT OF VARIATION 16.8 (11.5-15.0); RED BLOOD CELL COUNT(AUTO) 4.12 MIL/uL (4.0-5.2); WHITE BLOOD COUNT (AUTO) 4.3 K/uL (4.3-11.0)
[2016-10-12 12:09] VITALS: BP 146/71
--- NOTE | 2016-10-12 12:09 | NUR ---
MS RN NOTE: PATIENTS BLOOD PRESSURE CHECKED, READING SLIGHTLY ELEVATED, RECOMMENDED HYDRALAZINE DOSE AT 1300. PATIENT REFUSING TO TAKE HYDRALAZINE, ASKING TO GIVE MORNING DOSE OF DIOVAN. DIOVAN ADMINISTERED AT THIS TIME. WILL CONTINUE TO MONITOR.
[2016-10-12] MEDS: SOD FERRIC GLUC 125 MG in IV NS 0.9% 100 ML IV SCH (13:04)
--- NOTE | 2016-10-12 14:40 | NUR ---
MS RN NOTE: PATIENT CLEARED FOR DISCHARGE PER DR. HASSAN. PATIENT REMAINS STABLE. ALL NEEDS MET. PATIENTS EXIT CARE COMPLETED, ALL FORMS SIGNED, COPIES PLACED IN CHART. PATIENT/SON PROVIDE DISCHARGE TEACHING REGARDING MEDICATIONS AND NEED TO FOLLOW UP WITH PRIMARY MD AND CARDIOLOGY. PATIENT GIVEN HAND WRITTEN PRESCRIPTION, COPY IN CHART. ALL NEEDS MET. MIDLINE REMOVED. ID BAND REMOVED. PATIENT ESCORTED OUT OF HOSPITAL, LEFT AMBULATORY VIA PRIVATE CAR WITH SONKENNA.
== END 2016-10-12 14:40 | disposition home or self-care (01) | DRG 812 ==
LOC: MED 16:06
PROVIDERS: ADMIT Legal Medicine; ATTEND Legal Medicine
PROC: 05HF33Z Insertion of Infusion Device into Left Cephalic Vein, Percutaneous Approach (ICD-10-PCS; 2016-10-08)
PROC: 0DB68ZX Excision of Stomach, Via Natural or Artificial Opening Endoscopic, Diagnostic (ICD-10-PCS; principal; 2016-10-11 12:35)
PROC: 0DJD8ZZ Inspection of Lower Intestinal Tract, Via Natural or Artificial Opening Endoscopic (ICD-10-PCS; 2016-10-11 12:35)
DX: D50.9 Iron deficiency anemia, unspecified (principal); I10 Essential (primary) hypertension; E11.9 Type 2 diabetes mellitus without complications; E66.9 Obesity, unspecified; Z85.72 Personal history of non-Hodgkin lymphomas; G47.33 Obstructive sleep apnea (adult) (pediatric); R59.0 Localized enlarged lymph nodes; Z68.36 Body mass index [BMI] 36.0-36.9, adult; Z90.49 Acquired absence of other specified parts of digestive tract
CPT/HCPCS: 36415; 71010-TC; 80048-TC; 80053-TC; 80061-TC; 81000-TC; 82378; 82962-TC; 83540-TC; 83735-TC; 83880; 84443-TC; 84484-TC; 85025-TC; 85378-TC; 85610-TC; 85730-TC; 86301; 86304; 87081-TC; 87086-TC; 88305-TC; 88313-TC; 93307-TC; 93880-TC; 97001-TC; A9502; J1815; J2405; J2704; J2916; J3420; J7030; J7050; Q9967; Z7610

== ENCOUNTER 2017-01-24 09:12 | Outpatient (CLI) | payer MEDICARE, MEDICAID ==
[~2017-01-24 09:12] MED LIST changes: +ACET-868 PO; +ESCI10TA PO; -EZET1TAB7 PO; +HYDR-548 PO; -LORA0.5T PO; +LORA1TAB82 PO; +PANT40TA2 PO; +VALS160T2 PO; -VALS1TAB4 PO
== END 2017-01-24 23:59 | disposition home or self-care (01) ==
LOC: CT 09:12
PROVIDERS: ATTEND Legal Medicine
DX: I67.2 Cerebral atherosclerosis (principal); J32.0 Chronic maxillary sinusitis; J34.1 Cyst and mucocele of nose and nasal sinus
CPT/HCPCS: 70450-TC; 70486-TC

== ENCOUNTER 2018-10-17 12:08 | Inpatient (IN) | payer MEDICARE, MEDICAID ==
[~2018-10-17] VITALS: Ht 160 cm; Wt 94.4 kg
[~2018-10-17 12:08] MED LIST changes: +HYDR-4354 PO; -HYDR-548 PO; +LORA-259 PO; -LORA1TAB82 PO; +METF-440 PO; -METF500T4 PO
[2018-10-17] MEDS ORDERED: GLIM4TAB2 PO (14:43)
[2018-10-17] MEDS ORDERED: AMYL1CAP56 PO (14:43)
[2018-10-17] MEDS ORDERED: IBUP-1953 PO (14:43)
[2018-10-17] MEDS ORDERED: FERR325T23 PO (14:43)
[2018-10-17] MEDS ORDERED: NIFE30TA91 PO (14:45)
[2018-10-17] MEDS ORDERED: CLONIDINE HCL 0.1 MG TABLET PO PRN (15:00)
[2018-10-17] MEDS ORDERED: MORPHINE SULFATE INJ 2 MG/ML DISP.SYRIN IV PRN (15:00)
[2018-10-17] MEDS ORDERED: DEXTROSE 50%-WATER 50 ML DISP.SYRIN IV PRN (15:00)
[2018-10-17 15:44] LABS: BASOPHILS % (AUTO) 0.7 % (0.0-2.0); EOSINOPHILS % (AUTO) 3.9 % (0.0-6.0); HEMATOCRIT 35 % (33-45); LYMPHOCYTES # (AUTO) 0.8 /CMM (0.8-4.8); LYMPHOCYTES % (AUTO) 19.4 % (20.0-44.0); MEAN CORPUSCULAR HGB CONC 34 g/dl (31.0-36.0); MEAN CORPUSCULAR VOLUME 87 fL (82-100); MONOCYTES # (AUTO) 0.4 /CMM (0.1-1.30); MONOCYTES % (AUTO) 9.2 % (2.0-12.0); NEUTROPHILS # (AUTO) 2.8 /CMM (1.8-8.9); NEUTROPHILS % (AUTO) 66.8 % (43.0-81.0); PLATELET COUNT (AUTO) 195 /CMM (150-450); RED BLOOD CELL COUNT(AUTO) 4.04 MIL/uL (4.0-5.2); WHITE BLOOD COUNT (AUTO) 4.2 K/uL (4.3-11.0)
[2018-10-17 15:56] LABS: CALCIUM, SERUM 9.2 mg/dL (8.5-10.1); CARBON DIOXIDE 25 mmol/L (21-32); CHLORIDE 105 mmol/L (98-107); CREATININE 1.3 mg/dL (0.6-1.3); GLUCOSE 118 mg/dL (74-106); POTASSIUM 3.9 mmol/L (3.5-5.1); SODIUM SERUM 141 mmol/L (136-145); UREA NITROGEN, BLOOD 23 mg/dL (7-18)
[2018-10-17 15:58] LABS: ALANINE AMINOTRANSFERASE 32 U/L (12-78); ALBUMIN 3.6 g/dL (3.4-5.0); ALKALINE PHOSPHATASE 52 U/L (46-116); ASPARTATE AMINOTRANSFERASE 22 U/L (15-37); BILIRUBIN,TOTAL 0.3 mg/dL (0.2-1.0); TOTAL PROTEIN, SERUM 6.8 g/dL (6.4-8.2)
[2018-10-17] MEDS ORDERED: MORPHINE SULFATE INJ 2 MG/ML DISP.SYRIN IM PRN (17:00)
[2018-10-17] MEDS: INSULIN REGULAR, HUMAN 100 UNIT/ML 3 ML VIAL SQ PRN ×2 (17:03→22:07)
[2018-10-17] MEDS: BLOOD SUGAR DIAGNOSTIC 1 EACH STRIP IN SCH ×2 (17:03→21:53)
[2018-10-17] MEDS ORDERED: BLOOD SUGAR DIAGNOSTIC 1 EACH STRIP IN SCH (17:30)
[2018-10-17] MEDS: IV NS 0.9% 1,000 ML IV PRN (18:08)
[2018-10-17] MEDS: ENOXAPARIN SODIUM 30 MG/0.3 ML DISP.SYRIN SQ SCH (21:50)
[2018-10-17] MEDS: CEFTRIAXONE 1 G in IV D5W 50 ML IV SCH (21:53)
[2018-10-17] MEDS: diphenhydrAMINE HCL 50 MG/ML VIAL IV PRN (21:53)
[2018-10-17] MEDS: ACETAMINOPHEN 325 MG TABLET PO PRN (22:11)
[2018-10-18] MEDS: ACETAMINOPHEN 325 MG TABLET PO PRN (06:18)
[2018-10-18] MEDS: INSULIN REGULAR, HUMAN 100 UNIT/ML 3 ML VIAL SQ PRN ×3 (06:19→21:55)
[2018-10-18 06:31] LABS: APPEARANCE,URINE CLEAR (CLEAR); BILIRUBIN,URINE NEGATIVE (NEGATIVE); BLOOD, URINE NEGATIVE Ery/uL (NEGATIVE); COLOR,URINE YELLOW (YELLOW); KETONES,URINE NEGATIVE (NEGATIVE); LEUKOCYTE ESTERASE ,URINE NEGATIVE (NEGATIVE); NITRITE, URINE NEGATIVE (NEGATIVE); PROTEIN,URINE NEGATIVE (NEGATIVE); UGLUCOSE NEGATIVE (NEGATIVE); UROBILINOGEN,URINE 0.2 EU/dL (0.2)
[2018-10-18] MEDS: BLOOD SUGAR DIAGNOSTIC 1 EACH STRIP IN SCH ×4 (06:31→21:54)
[2018-10-18] MEDS: IV NS 0.9% 1,000 ML IV PRN (06:33)
[2018-10-18 06:34] LABS: BASOPHILS % (AUTO) 0.4 % (0.0-2.0); EOSINOPHILS % (AUTO) 4.8 % (0.0-6.0); HEMATOCRIT 38 % (33-45); HEMOGLOBIN 12.7 g/dL (11.5-14.8); LYMPHOCYTES # (AUTO) 0.7 /CMM (0.8-4.8); LYMPHOCYTES % (AUTO) 21.4 % (20.0-44.0); MEAN CORPUSCULAR HGB CONC 34 g/dl (31.0-36.0); MEAN CORPUSCULAR VOLUME 87 fL (82-100); MONOCYTES # (AUTO) 0.3 /CMM (0.1-1.30); MONOCYTES % (AUTO) 9.7 % (2.0-12.0); NEUTROPHILS # (AUTO) 2.1 /CMM (1.8-8.9); NEUTROPHILS % (AUTO) 63.7 % (43.0-81.0); PLATELET COUNT (AUTO) 181 /CMM (150-450); RED BLOOD CELL COUNT(AUTO) 4.31 MIL/uL (4.0-5.2); WHITE BLOOD COUNT (AUTO) 3.3 K/uL (4.3-11.0)
[2018-10-18 06:35] LABS: CALCIUM, SERUM 8.5 mg/dL (8.5-10.1); CARBON DIOXIDE 27 mmol/L (21-32); CHLORIDE 106 mmol/L (98-107); CREATININE 0.9 mg/dL (0.6-1.3); GLUCOSE 159 mg/dL (74-106); POTASSIUM 3.7 mmol/L (3.5-5.1); SODIUM SERUM 141 mmol/L (136-145); UREA NITROGEN, BLOOD 18 mg/dL (7-18)
[2018-10-18 08:00] VITALS: BP 136/60
[2018-10-18] MEDS ORDERED: GLIMEPIRIDE 4 MG TABLET PO PRN (08:00)
[2018-10-18] MEDS ORDERED: Medication Not On Formulary EA (Nifedipine (Nifedipine Er) 30 MG) PO SCH (09:00)
[2018-10-18] MEDS ORDERED: IBUPROFEN 400 MG TABLET PO SCH (09:00)
[2018-10-18] MEDS: ESCITALOPRAM OXALATE (10 MG) 10 MG TABLET PO SCH ×2 (09:25→17:28)
[2018-10-18] MEDS: FERROUS SULFATE (325 MG) 325 MG/TAB TABLET PO SCH ×2 (09:25→17:28)
[2018-10-18] MEDS: METFORMIN 500 MG TABLET PO SCH ×2 (09:25→17:28)
[2018-10-18] MEDS: PANTOPRAZOLE 40 MG TABLET.DR PO SCH (09:25)
[2018-10-18] MEDS: AGGRENOX(ASA/DIPYRIDAMOLE) 1 CAP CPMP.12HR PO SCH ×2 (11:27→21:54)
[2018-10-18] MEDS: GLIMEPIRIDE 1 MG TABLET PO SCH (13:00)
[2018-10-18] MEDS: LIPASE/PROTEASE/AMYLASE 1 EACH CAPSULE.DR PO SCH ×2 (13:00→18:00)
[2018-10-18] MEDS: NIFEdipine XL (30MG) 30 MG TAB PO SCH (13:38)
[2018-10-18 16:00] VITALS: BP 138/60
[2018-10-18 20:00] VITALS: BP 159/65
[2018-10-18] MEDS: CEFTRIAXONE 1 G in IV D5W 50 ML IV SCH (21:53)
[2018-10-18] MEDS: ENOXAPARIN SODIUM 30 MG/0.3 ML DISP.SYRIN SQ SCH (21:54)
[2018-10-18] MEDS: diphenhydrAMINE HCL 50 MG/ML VIAL IV PRN (21:55)
[2018-10-19] MEDS: BLOOD SUGAR DIAGNOSTIC 1 EACH STRIP IN SCH ×4 (06:36→22:48)
[2018-10-19] MEDS: INSULIN REGULAR, HUMAN 100 UNIT/ML 3 ML VIAL SQ PRN (06:45)
[2018-10-19 08:00] VITALS: BP 104/60
[2018-10-19] MEDS: LIPASE/PROTEASE/AMYLASE 1 EACH CAPSULE.DR PO SCH ×3 (08:00→18:00)
[2018-10-19] MEDS: METFORMIN 500 MG TABLET PO SCH ×2 (08:29→17:07)
[2018-10-19] MEDS: AGGRENOX(ASA/DIPYRIDAMOLE) 1 CAP CPMP.12HR PO SCH ×2 (08:29→21:17)
[2018-10-19] MEDS: GLIMEPIRIDE 1 MG TABLET PO SCH (08:30)
[2018-10-19] MEDS: FERROUS SULFATE (325 MG) 325 MG/TAB TABLET PO SCH ×2 (08:31→17:07)
[2018-10-19] MEDS: ESCITALOPRAM OXALATE (10 MG) 10 MG TABLET PO SCH ×2 (08:31→17:07)
[2018-10-19] MEDS: NIFEdipine XL (30MG) 30 MG TAB PO SCH (08:32)
[2018-10-19] MEDS: PANTOPRAZOLE 40 MG TABLET.DR PO SCH (08:32)
[2018-10-19 16:00] VITALS: BP 144/66
[2018-10-19 20:00] VITALS: BP 149/62
[2018-10-19] MEDS: CEFTRIAXONE 1 G in IV D5W 50 ML IV SCH (20:05)
[2018-10-19] MEDS: ENOXAPARIN SODIUM 30 MG/0.3 ML DISP.SYRIN SQ SCH (20:51)
[2018-10-19] MEDS: IV NS 0.9% 1,000 ML IV PRN (22:48)
[2018-10-20] MEDS: INSULIN REGULAR, HUMAN 100 UNIT/ML 3 ML VIAL SQ PRN ×2 (06:25→21:09)
[2018-10-20] MEDS: BLOOD SUGAR DIAGNOSTIC 1 EACH STRIP IN SCH ×4 (06:32→21:06)
[2018-10-20 08:00] VITALS: BP 130/67
[2018-10-20] MEDS: LIPASE/PROTEASE/AMYLASE 1 EACH CAPSULE.DR PO SCH ×3 (08:00→18:00)
[2018-10-20] MEDS: ESCITALOPRAM OXALATE (10 MG) 10 MG TABLET PO SCH ×2 (09:21→17:38)
[2018-10-20] MEDS: METFORMIN 500 MG TABLET PO SCH ×2 (09:21→17:38)
[2018-10-20] MEDS: FERROUS SULFATE (325 MG) 325 MG/TAB TABLET PO SCH ×2 (09:22→17:38)
[2018-10-20] MEDS: NIFEdipine XL (30MG) 30 MG TAB PO SCH (09:22)
[2018-10-20] MEDS: GLIMEPIRIDE 1 MG TABLET PO SCH (09:22)
[2018-10-20] MEDS: AGGRENOX(ASA/DIPYRIDAMOLE) 1 CAP CPMP.12HR PO SCH ×2 (09:23→21:06)
[2018-10-20] MEDS: PANTOPRAZOLE 40 MG TABLET.DR PO SCH (09:24)
[2018-10-20] MEDS: KETOROLAC TROMETHAMINE INJ 30 MG/ML VIAL IM PRN (09:25)
[2018-10-20] MEDS ORDERED: MAGNESIUM HYDROXIDE 30 ML UDC PO PRN (13:00)
[2018-10-20 16:00] VITALS: BP 135/63
[2018-10-20 20:00] VITALS: BP 152/64
[2018-10-20] MEDS: ENOXAPARIN SODIUM 30 MG/0.3 ML DISP.SYRIN SQ SCH (21:00)
[2018-10-20 22:00] VITALS: BP 140/69
[2018-10-21] MEDS: BLOOD SUGAR DIAGNOSTIC 1 EACH STRIP IN SCH ×4 (06:44→21:48)
[2018-10-21] MEDS: INSULIN REGULAR, HUMAN 100 UNIT/ML 3 ML VIAL SQ PRN (06:47)
[2018-10-21 08:00] VITALS: BP 157/57
[2018-10-21] MEDS: ESCITALOPRAM OXALATE (10 MG) 10 MG TABLET PO SCH ×2 (08:07→17:13)
[2018-10-21] MEDS: METFORMIN 500 MG TABLET PO SCH ×2 (08:07→17:13)
[2018-10-21] MEDS: GLIMEPIRIDE 1 MG TABLET PO SCH (08:07)
[2018-10-21] MEDS: PANTOPRAZOLE 40 MG TABLET.DR PO SCH (08:07)
[2018-10-21] MEDS: LIPASE/PROTEASE/AMYLASE 1 EACH CAPSULE.DR PO SCH ×3 (08:07→17:14)
[2018-10-21] MEDS: FERROUS SULFATE (325 MG) 325 MG/TAB TABLET PO SCH ×2 (08:07→17:14)
[2018-10-21] MEDS: AGGRENOX(ASA/DIPYRIDAMOLE) 1 CAP CPMP.12HR PO SCH ×2 (08:07→22:37)
[2018-10-21] MEDS: NIFEdipine XL (30MG) 30 MG TAB PO SCH (08:08)
[2018-10-21] MEDS: VALSARTAN 80 MG TABLET PO SCH (11:36)
[2018-10-21 16:00] VITALS: BP 131/60
[2018-10-21 20:00] VITALS: BP 140/61
[2018-10-21] MEDS: ENOXAPARIN SODIUM 30 MG/0.3 ML DISP.SYRIN SQ SCH (21:00)
[2018-10-21] MEDS: ACETAMINOPHEN 325 MG TABLET PO PRN (21:44)
[2018-10-22] MEDS: BLOOD SUGAR DIAGNOSTIC 1 EACH STRIP IN SCH ×2 (06:36→11:40)
[2018-10-22] MEDS: INSULIN REGULAR, HUMAN 100 UNIT/ML 3 ML VIAL SQ PRN (06:39)
[2018-10-22 08:00] VITALS: BP 127/80
[2018-10-22] MEDS: PANTOPRAZOLE 40 MG TABLET.DR PO SCH (08:16)
[2018-10-22] MEDS: METFORMIN 500 MG TABLET PO SCH (08:16)
[2018-10-22] MEDS: GLIMEPIRIDE 1 MG TABLET PO SCH (08:16)
[2018-10-22] MEDS: ESCITALOPRAM OXALATE (10 MG) 10 MG TABLET PO SCH (08:16)
[2018-10-22] MEDS: VALSARTAN 80 MG TABLET PO SCH (08:16)
[2018-10-22] MEDS: FERROUS SULFATE (325 MG) 325 MG/TAB TABLET PO SCH (08:16)
[2018-10-22 08:17] VITALS: BP 127/80
[2018-10-22] MEDS: NIFEdipine XL (30MG) 30 MG TAB PO SCH (08:17)
[2018-10-22] MEDS: LIPASE/PROTEASE/AMYLASE 1 EACH CAPSULE.DR PO SCH ×2 (08:17→12:10)
[2018-10-22] MEDS: AGGRENOX(ASA/DIPYRIDAMOLE) 1 CAP CPMP.12HR PO SCH (08:20)
[2018-10-22] MEDS: KETOROLAC TROMETHAMINE INJ 30 MG/ML VIAL IM PRN (10:08)
== END 2018-10-22 15:15 | disposition home or self-care (01) | DRG 552 ==
LOC: MEDSG2 13:40
PROVIDERS: ADMIT Legal Medicine; ATTEND Legal Medicine
DX: M51.16 Intervertebral disc disorders with radiculopathy, lumbar region (principal); N20.0 Calculus of kidney; I10 Essential (primary) hypertension; G89.4 Chronic pain syndrome; E78.5 Hyperlipidemia, unspecified; Z85.72 Personal history of non-Hodgkin lymphomas; E11.9 Type 2 diabetes mellitus without complications; Z90.49 Acquired absence of other specified parts of digestive tract; K59.00 Constipation, unspecified; Z79.82 Long term (current) use of aspirin; Z79.84 Long term (current) use of oral hypoglycemic drugs; Z79.899 Other long term (current) drug therapy; D73.9 Disease of spleen, unspecified; G47.33 Obstructive sleep apnea (adult) (pediatric); I25.10 Atherosclerotic heart disease of native coronary artery without angina pectoris; M43.16 Spondylolisthesis, lumbar region
CPT/HCPCS: 36415; 71045-TC; 72131-TC; 72148-TC; 76770-TC; 76856-TC; 80048-TC; 80053-TC; 81000-TC; 82962-TC; 85025-TC; 87040-TC; 87081-TC; 87086-TC; 93307-TC; 97116-TC; 97530-TC; G0378; J0696; J1200; J1650; J1815; J1885; J2270; J7030; J7050; J7060

== ENCOUNTER 2018-10-28 13:30 | Outpatient (CLI) | payer MEDICARE, MEDICAID ==
[~2018-10-28 13:30] MED LIST changes: -ACET-868 PO; +AMYL1CAP56 PO; -CLON0.1T PO; +FERR325T23 PO; +GLIM4TAB2 PO; +IBUP-1953 PO; -LORA-259 PO; +NIFE30TA91 PO; -PANT40TA2 PO; -VALS160T2 PO
== END 2018-10-28 23:59 | disposition home or self-care (01) ==
LOC: MSC 13:30
PROVIDERS: ATTEND Anesthesiology
DX: M51.36 Other intervertebral disc degeneration, lumbar region (principal); M51.26 Other intervertebral disc displacement, lumbar region; M47.27 Other spondylosis with radiculopathy, lumbosacral region; M48.061 Spinal stenosis, lumbar region without neurogenic claudication; M40.299 Other kyphosis, site unspecified; M62.830 Muscle spasm of back; Z79.1 Long term (current) use of non-steroidal anti-inflammatories (NSAID)

== ENCOUNTER 2019-04-07 12:55 | Outpatient (CLI) | payer MEDICARE, MEDICAID ==
[~2019-04-07 12:55] MED LIST changes: -GLIM4TAB2 PO; +GLIM4TAB37 PO
[2019-04-07] MEDS ORDERED: KETOROLAC TROMETHAMINE INJ 30 MG/ML VIAL IV ONE (12:56)
== END 2019-04-07 23:59 | disposition home or self-care (01) ==
LOC: MSC 12:55
PROVIDERS: ATTEND Anesthesiology
DX: M51.36 Other intervertebral disc degeneration, lumbar region (principal); M51.26 Other intervertebral disc displacement, lumbar region; M47.27 Other spondylosis with radiculopathy, lumbosacral region; M40.299 Other kyphosis, site unspecified; M48.061 Spinal stenosis, lumbar region without neurogenic claudication; M62.830 Muscle spasm of back; Z79.1 Long term (current) use of non-steroidal anti-inflammatories (NSAID)
CPT/HCPCS: J1885